=== PATIENT | male | born 1955 | race Caucasian/White ===

== ENCOUNTER → 2017-10-19 | Outpatient (CLI) | payer OTHER ==
[~2017-10-19] MED LIST: ACET650T40 PO; ANDROGEL TOP; ASPI81TA94 PO; DEXA2TAB7 PO; HYDR-2966 PO; HYDR-385 PO; HYDR2TAB74 PO; LISI-347; LISI-349 PO; LORA-1458 PO; LOSA50TA72 PO; MECL25TA9 PO; MELO-149 PO; META800T18 PO; METH-541; MULT-1121 PO; OMEG300C PO; OXYC-373 PO; OXYC-865 PO; OXYC-870 PO; OXYC5CAP21 PO; PRED-314 PO; ROSU20TA23 PO
--- NOTE | 2017-10-19 14:21 | RADIOLOGY IMAGING REPORT ---
[place]AC[place] [facility] [place] NAME: Rayshawn Farrell : 1955 MR: [id number] V: [id number] EXAM DATE: ORDERING PHYSICIAN: J CARLOS WHITTEN TECHNOLOGIST: Location: [facility] Patient: Rayshawn Farrell : 1955 Visit/Account:[id number] Date of Sevice: 10/19/2017 EXAMINATION: MRI Lumbar spine without intravenous contrast HISTORY: Low back pain. COMPARISON: None. TECHNIQUE: Multi-planar, multi-sequence lumbar spine MRI was performed without intravenous contrast administration. FINDINGS: Alignment: Minimal anterior listhesis of L1 over L2 and retrolisthesis of L2 over L3 and L3 over L4. Vertebral marrow signal: Discogenic fatty marrow changes at L1-L2 and L2-L3. Mild discogenic bone mar row edema at L3-L4. Distal thoracic cord: Negative. Conus: negative, terminates at T12-L1 Cauda equina: Negative. Paravertebral soft tissues: Negative. Visualized abdominal and pelvic structures: Negative. Disc Spaces: Lower thoracic spine: Mild degenerative changes without stenosis. L1-2: Moderate disc height loss with circumferential disc bulge and facet hypertrophy. Mild to modera te spinal canal stenosis. Mild to moderate bilateral neural foraminal stenosis. L2-3: Moderate disc height loss with circumferential disc bulge, facet hypertrophy, and ligamentum fl avum thickening. Mild spinal canal stenosis. Mild left and moderate right neural foraminal stenosis. L3-4: Mild disc at loss with circumferential disc bulge and superimposed right central/foraminal disc extrusion. Right greater than left facet hypertrophy. Moderate to severe spinal canal stenosis, most severe in the right lateral recess. Severe right and moderately severe left neural foraminal stenosi s. L4-5: Minimal disc bulge. Mild left greater than right facet hypertrophy and ligamentum flavum thicke bryanna. Mild spinal canal stenosis. Moderate right and moderately severe left neural foraminal stenosis . L5-S1: Mild left greater than right facet hypertrophy with mild neural foraminal stenosis. IMPRESSION: Multilevel degenerative disc disease with a few mild alignment abnormalities and multilevel spinal ca nal and neural foraminal stenosis. Please see above report for level by level description. Report Dictated By: Al Morel MD at 10/19/2017 2:11 PM Report E-Signed By: Al Morel MD at 10/19/2017 2:17 PM WSN:[id number]
== END ==
LOC: MRI 10:28
PROVIDERS: ATTEND Physician Assistant
DX: M47.894 Other spondylosis, thoracic region (principal); M48.061 Spinal stenosis, lumbar region without neurogenic claudication; M48.08 Spinal stenosis, sacral and sacrococcygeal region
CPT/HCPCS: 72148

== ENCOUNTER → 2019-03-27 | Outpatient (CLI) | payer OTHER ==
[~2019-03-27] MED LIST changes: -LOSA50TA72 PO; +LOSA50TA80 PO; -ROSU20TA23 PO; +ROSU20TA24 PO
== END ==
LOC: RAD 01:10
PROVIDERS: ATTEND Internal Medicine Cardiovascular Disease
DX: I48.1 Persistent atrial fibrillation (principal)
CPT/HCPCS: 93306

== ENCOUNTER → 2019-03-28 | Outpatient (CLI) | payer OTHER ==
--- NOTE | 2019-03-30 21:11 | RT HOLTER TEST ---
FACILITY: [facility] PATIENT NAME: SIMRAN GANN : [id number] MR: [id number] V: [id number] EXAM DATE: ORDERING PHYSICIAN: AMY JACOBO TECHNOLOGIST: SUSANA Hook-up date: 2019-03-28 11:21:00 Duration: 47:59:00 Test Indications: AFIB Medications: N/A [id number] QRS complexes 11 Ventricular ectopics which represent <1 % of total QRS comp. 1 Supraventricular ectopics which represent <1 % of total QRS comp. * Paced QRS complexes which represent % of total QRS comp. VENTRICULAR ECTOPY 7 Isolated 0 Bigeminal Cycles 0 Couplets 1 Runs 4 Beats in Runs 4 Beats LONGEST at 96 BPM at 21:21:56 2019-03-28 4 Beats FASTEST at 96 BPM at 21:21:56 2019-03-28 SUPRAVENTRICULAR ECTOPY 1 Isolated 0 Couplets 0 Runs 0 Beats in Runs * Beats LONGEST at * BPM at :: -- * Beats FASTEST at * BPM at :: -- HEART RATES 89 MIN at 12:26:19 2019-03-29 82 AVG 171 MAX at 10:12:32 2019-03-29 LONGEST RR 1.200 secs at 12:36:19 2019-03-29 S-T LEVELS Channel 1 -12.800 mm MIN at 11:21:00 2019-03-28 -12.800 mm MAX at 11:21:00 2019-03-28 Channel 2 -12.800 mm MIN at 11:21:00 2019-03-28 -12.800 mm MAX at 11:21:00 2019-03-28 Channel 3 -12.800 mm MIN at 11:21:00 2019-03-28 -12.800 mm MAX at 11:21:00 2019-03-28 Atrial fibrillation throughout study. Positive holter study. Confirmed by Ervin De La Rosa ([id number]) on 03/30/2019 9:07:19 PM Referred By: Overread By: Ervin Magdaleno
== END ==
LOC: RESP 04:19
PROVIDERS: ATTEND Internal Medicine Cardiovascular Disease
DX: I48.1 Persistent atrial fibrillation (principal); R94.39 Abnormal result of other cardiovascular function study
CPT/HCPCS: 93225